=== PATIENT | male | born 1945 | race Two or more races ===

== ENCOUNTER 2017-06-01 08:40 | Outpatient (CLI) | payer OTHER ==
[~2017-06-01] VITALS: Ht 167.6 cm; Wt 68.9 kg
[~2017-06-01 08:40] MED LIST: BENADRYL25 MG PO; CAPOTEN50 MG PO; CARDURA XL4 MG/BOTTL PO; FLOMAX; LEVOTHYROXINE25 MCG; MEDROL4 MG PO; PLAVIX75 MG PO
== END 2017-06-01 09:00 | disposition home or self-care (01) ==
LOC: OFIC 805 08:40
DX: J04.0 Acute laryngitis (principal); R49.0 Dysphonia; R49.1 Aphonia; E06.3 Autoimmune thyroiditis

== ENCOUNTER 2017-06-10 06:37 | Outpatient (CLI) | payer OTHER | END 2017-06-10 06:44 | disposition home or self-care (01) | LOC: LAB 06:37 | DX: E03.8 Other specified hypothyroidism (principal); N40.1 Benign prostatic hyperplasia with lower urinary tract symptoms ==

== ENCOUNTER 2017-07-21 06:57 | Outpatient (CLI) | payer OTHER | END 2017-07-21 18:12 | disposition home or self-care (01) | LOC: LAB 06:57 | DX: N40.1 Benign prostatic hyperplasia with lower urinary tract symptoms (principal); E78.2 Mixed hyperlipidemia; E55.9 Vitamin D deficiency, unspecified; E03.8 Other specified hypothyroidism; D63.8 Anemia in other chronic diseases classified elsewhere; N39.0 Urinary tract infection, site not specified ==

== ENCOUNTER 2018-07-06 07:33 | Emergency (ER) | payer OTHER ==
[~2018-07-06] VITALS: Ht 167.6 cm; Wt 62.1 kg
== END 2018-07-06 10:41 | disposition home or self-care (01) ==
LOC: ER 07:33
DX: K06.8 Other specified disorders of gingiva and edentulous alveolar ridge (principal); R10.32 Left lower quadrant pain; R10.12 Left upper quadrant pain

== ENCOUNTER 2018-08-09 09:50 | Outpatient (CLI) | payer OTHER ==
[~2018-08-09] VITALS: Ht 167.6 cm; Wt 68.9 kg
== END 2018-08-09 10:10 | disposition home or self-care (01) ==
LOC: OFIC 805 09:50
DX: J04.0 Acute laryngitis (principal); R49.0 Dysphonia; K21.0 Gastro-esophageal reflux disease with esophagitis